=== PATIENT | female | born 1980 | race Hispanic/Latino ===

== ENCOUNTER 2017-05-21 10:53 | Inpatient (IN) | payer BC ==
[2017-05-21] MEDS ORDERED: DULCOLAX PR PRN (10:55)
[2017-05-21] MEDS ORDERED: MILK OF MAGNESIA PO PRN (10:55)
[2017-05-21] MEDS ORDERED: MOTRIN PO PRN (10:55)
[2017-05-21] MEDS ORDERED: TYLENOL PO PRN (10:55)
[2017-05-21] MEDS ORDERED: ZOFRAN IV PRN (10:55)
--- NOTE | 2017-05-21 11:08 | History and Physical Report ---
History of Present Illness Date of examination: 05/12/17 Date of admission: 05/21/17 10:53 Chief complaint: uti History of present illness: Pt has bilateral multiple kidney stones now with uti e coli only sensitive to ertapenum and imipenum. She is currently followed by urology, infectious dz as well as nephrology. She has no fevers or chills but does have flank pain. She has h/o of becoming septic requiring IV antibx via a port. Pt has had recurrentl UTI and pyelonephritis. Neither of these appear to be in the hospital emr so ID has been consulted for recommendations in treatment. There was an intermediate sensitivity to macrobid so will start at this time while awaiting further recommendations. Pt was being followed by Dr. Lucia previously and she has been consulted to give recommendations regarding out pt therapy as well as treatment at this time. Past Medical History: hx of kidney stones-several admission over the few months for sepsis, becteremia as a complication of the kidney stones. 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 History: denies: abnormal PAP smear Social history: no significant social history, single Medications and Allergies Allergies Allergy/AdvReac Type Severity Reaction Status Date / Time No Known Allergies Allergy Unverified 08/07/14 14:39 Home Medications Medication Instructions Recorded Confirmed Last Taken Type Ibuprofen [Motrin 800 MG tab] 800 mg PO Q8H PRN #30 tablet 08/15/14 Unknown Rx oxyCODONE /ACETAMINOPHEN [Percocet 1 tab PO Q6HR PRN #30 tablet 08/15/14 Unknown Rx 5/325] Review of Systems All systems: negative - Physical Exam Cardiovascular: Normal S1, Normal S2 Lungs: Positive: Clear to auscultation, Normal air movement Abdomen: Positive: normal appearance, soft. Negative: guarding, rigidity Genitourinary (Female): Positive: other (DEFERRED) Results All other labs normal. Assessment and Plan - Patient Problems (1) Renal calculus, bilateral Current Visit: Yes Status: Acute (2) Complicated UTI (urinary tract infection) Current Visit: Yes Status: Acute Plan to address problem: -intermediate sensitivity to macrobid so will start at this time until recommendations given by ID -admit for obs given pt h/o of sepsis due to complicated UTI -plan of care d/w pt and questions were addressed and answered. Pt was called on 05/19/17 when results were available but she was out of town and was not able to come to hospital for admission. She currently c/o flank pain which she did not have at the time the urine cx was drawn. She is s/p treatment recently but was still having symptoms and hence the reason for the repeat cx for a betina in my office.
[2017-05-21] MEDS: MACROBID PO SCH (13:15)
[2017-05-21] MEDS: NORCO 5/325 PO PRN ×2 (13:15→19:56)
--- NOTE | 2017-05-21 14:12 | Consultation ---
History of Present Illness - Reason for Consult Consult date: 05/21/17 recurrent MDR UTI Requesting physician: CAPRICE MADSEN - History of Present Illness 37 years old female well known to me, with history of complicated MDR/ESBL Escherichia coli UTI with recorder and kidney stones/left collecting system obstruction, admitted on 05/20/2017 due to R week history of worsening left- sided flank pain, 10 out of 10, associated with some frequency and urine odor. Patient has been treated in the past with IV ertapenem and last time November 2016. She follows up with KAVITA Akins. Patient has been chronically on fosfomycin however she has developed symptoms on fosfomycin. She has had urinalyses and urine culture done on May 13, which grew multidrug resistant Escherichia coli only sensitive to ertapenem). Patient was given Macrobid without any improvement. Denies any recent fever, chills. Reports severe nausea and vomiting. Upon admission, initial temperature 90.8, heart rate 78, respiration 18, blood pressure 132/77. Labs are pending. Microbiology: Urine cultures: 05/13 MDR E coli Current Antimicrobials: none Previous Antimicrobials: macrobid Past History Past Medical History: other (recurrent UTI and kidney stones ) Past Surgical History: Other (left sided ureteral stents ) Social history: no significant social history, single Medications and Allergies Allergies Allergy/AdvReac Type Severity Reaction Status Date / Time No Known Allergies Allergy Unverified 08/07/14 14:39 Home Medications Medication Instructions Recorded Confirmed Last Taken Type Ibuprofen [Motrin 800 MG tab] 800 mg PO Q8H PRN #30 tablet 08/15/14 05/21/17 Unknown Rx oxyCODONE /ACETAMINOPHEN [Percocet 1 tab PO Q6HR PRN #30 tablet 08/15/1405/17/17 Rx 5/325] Active Meds: Active Medications Acetaminophen (Tylenol) 650 mg PO Q4H PRN PRN Reason: Pain MILD(1-3)/Fever >100.5/THOMPSON Acetaminophen/Hydrocodone Bitart ([place] 5/325) 2 each PO Q6H PRN PRN Reason: Pain, Moderate (4-6) Bisacodyl (Dulcolax) 10 mg IA QDAY PRN PRN Reason: Constipation unrelieved by MOM Meropenem 1,000 mg/ Sodium (Chloride) 100 mls @ 100 mls/hr IV Q8HR JOVANNI PRN Reason: Protocol Ibuprofen (Motrin) 600 mg PO Q6H PRN PRN Reason: Pain, Mild (1-3) Magnesium Hydroxide (Milk Of Magnesia) 30 ml PO Q4H PRN PRN Reason: Constipation Nitrofurantoin Macrocrystals (Macrobid) 100 mg PO Q12HR JOVANNI Ondansetron HCl (Zofran) 4 mg IV Q8H PRN PRN Reason: N/V unrelieved by Reglan Review of Systems All systems: negative (as per HPI rest neg) Physical Examination - Physical Exam Narrative exam: General appearance: Alert in NAD, conversant Eyes: anicteric sclerae, moist conjunctivae; no lid-lag; PERRLA HENT: Atraumatic; oropharynx clear Neck: Trachea midline; supple, no thyromegaly or lymphadenopathy Lungs: CTA CV: RRR Abdomen: Soft, non-tender. + Left CVT Extremities: No peripheral edema or extremity lymphadenopathy Skin: Normal temperature, turgor and texture; no rash, ulcers or subcutaneous nodules Psych: Appropriate affect, alert and oriented to person, place and time. Neuro: alert and oriented x 3. Moving all extermities Lines: No CVL / PICC - Constitutional Vitals: Vital Signs Temp Pulse Resp BP Pulse Ox 98.1 F 78 18 132/77 97 05/21/17 13:25 05/21/17 13:25 05/21/17 13:25 05/21/17 13:25 05/21/17 13:25 Temperature -Last 24 Hours Temperature 98.1 F Assessment and Plan Assessment: 1) Recurrent complicated MDR/ESBL E coli UTI with recurrent stones and previous left ureteral strictures Plan: -obtain UA / urine culture / CBC and CMP / CRP -obtain renal US -start meropenem IV q 8h -contact isolation due to MDR E coli -if ureteral obstruction consult Urology -obtain records from [facility] office - where she is routinely seen -If clinically better, after 2-3 days of IV meropenem, ok to d/c home on fosfomycin 3 g PO every 3 days x 3 doses then 3 g PO once a week for 6 weeks -Needs ID clinic f/u with [facility] I will be off until May 27, but available over the phone, please call me for questions. Thank you Dr Madsen for your consultation, will follow up with you. Kalie Tena MD Infectious Diseases Specialist [facility] ([facility] M [phone] O [phone]
[2017-05-21 14:44] LABS: Basophils # (Auto) 0.1 K/mm3 (0.0-0.1); Basophils % (Auto) 0.5 % (0.0-1.8); Eosinophils % (Auto) 0.3 % (0.0-4.3); Hematocrit 42.9 % (30.3-42.9); Hemoglobin 14.1 gm/dl (10.1-14.3); Lymphocytes # (Auto) 1.6 K/mm3 (1.2-5.4); Mean Corpuscular HGB Conc 33 % (30-34); Mean Corpuscular Hemoglobin 26 pg (28-32); Mean Corpuscular Volume 81 fl (79-97); Monocytes # (Auto) 0.8 K/mm3 (0.0-0.8); Monocytes % (Auto) 5.6 % (0.0-7.3); Platelet Count 244 K/mm3 (140-440); Red Blood Count 5.33 M/mm3 (3.65-5.03); Red Cell Distribution Width 15.2 % (13.2-15.2)
[2017-05-21] MEDS: LACTATED RINGERS 1,000 ML IV SCH (14:45)
[2017-05-21 14:54] LABS: BUN/Creatinine Ratio 30; Blood Urea Nitrogen 15 mg/dL (7-17); Calcium 9.2 mg/dL (8.4-10.2); Hemolysis Index 19
[2017-05-21] MEDS: MERREM 1,000 MG in NACL 0.9% 100 ML IV SCH (16:00)
--- NOTE | 2017-05-21 17:49 | Ultrasound Report ---
FINAL REPORT PROCEDURE: US RENAL BILAT TECHNIQUE: Real-time sonography in multiple planes of the kidneys, ureters and urinary bladder was performed with image documentation. CPT 85509 HISTORY: recurrent UTI and stones please eval COMPARISON: No prior studies are available for comparison. FINDINGS: The echogenicity of the renal cortex bilaterally appears normal however the renal cortex of both kidneys appears significantly thinned consistent with atrophy. The right kidney measures 11.4 x 6.1 x 6.6 centimeters. The left kidney 9.1 x 6.4 x 6.2 centimeter. No masses or calculi are visualized. No evidence of hydronephrosis. The cortex of the right kidney only measures 7 millimeters in thickness, the cortex of the left kidney measures 6 millimeters in thickness. Image of the urinary bladder provided shows no abnormality. IMPRESSION: Renal cortex of the kidneys bilaterally appears thin. The appearance is consistent with atrophy. Kidneys are otherwise unremarkable.
[2017-05-22] MEDS: MERREM 1,000 MG in NACL 0.9% 100 ML IV SCH ×3 (00:41→16:30)
[2017-05-22] MEDS: MACROBID PO SCH ×2 (00:41→13:00)
[2017-05-22] MEDS: NORCO 5/325 PO PRN ×3 (03:54→21:18)
[2017-05-22] MEDS ORDERED: PAXIL PO SCH (10:00)
[2017-05-22] MEDS: LACTATED RINGERS 1,000 ML IV SCH ×2 (10:15→19:36)
--- NOTE | 2017-05-22 13:51 | Progress Note ---
Assessment and Plan - Patient Problems (1) Renal calculus, bilateral Current Visit: Yes Status: Acute (2) Complicated UTI (urinary tract infection) Current Visit: Yes Status: Acute Plan to address problem: -cont treatment as per ID -d/c home with out pt f/u after 48hrs of IV antibx Subjective - Subjective Date of service: 05/22/17 Principal diagnosis: HD #2 with uti resistent Interval history: pt doing well and states that pain continues to improve. No fevers or chills. She declines the paxil at this time. Patient reports: appetite normal, voiding normally, pain well controlled Objective - Vital Signs Latest vital signs: Vital Signs Temp Pulse Resp Resp Resp BP Pulse Ox 05/22/17 08:53 98.5 F 72 18 108/72 05/22/17 05:28 98.2 F 75 18 96/61 05/22/17 03:54 18 18 05/22/17 00:00 97.8 F 79 20 111/61 95 05/21/17 20:20 98.6 F 80 20 129/80 95 05/21/17 19:56 18 18 05/21/17 17:00 98.8 F 72 20 132/81 96 Intake and Output 05/21/17 05/22/17 05/22/17 22:59 06:59 14:59 Intake Total 540 200 240 Output Total 400 250 350 Balance 140 -50 -110 Intake: IV 100 Merrem 1,000 mg In NaCl 0 100 .9% 100 ml @ 100 mls/hr IV Q8HR [facility] Rx#:[id number] Oral 320 200 240 Tube Feeding 120 Output: Urine 400 250 350 Void 400 250 350 Other: Total, Intake Amount 100 100 240 Total, Output Amount 200 250 350 Voiding Method Toilet # Voids Void 100 - Exam Cardiovascular: Present: Normal S1, Normal S2 Lungs: Present: Clear to auscultation, Normal air movement Abdomen: Present: normal appearance, soft. Absent: distention, tenderness, guarding - Labs Labs: Abnormal lab results 05/21/17 05/21/17 05/21/17 Range/Units 14:10 14:10 14:21 WBC 14.4 H (4.5-11.0) K/mm3 RBC 5.33 H (3.65-5.03) M/mm3 MCH 26 L (28-32) pg Lymph % (Auto) 11.0 L (13.4-35.0) % Seg Neutrophils % 82.6 H (40.0-70.0) % Seg Neutrophils # 11.9 H (1.8-7.7) K/mm3 Creatinine 0.5 L (0.7-1.2) mg/dL Glucose 110 H (65-100) mg/dL C-Reactive Protein 1.40 H (0.00-1.30) mg/dL
[2017-05-23] MEDS: MACROBID PO SCH ×2 (00:49→13:18)
[2017-05-23] MEDS: MERREM 1,000 MG in NACL 0.9% 100 ML IV SCH ×3 (00:49→15:48)
[2017-05-23] MEDS: NORCO 5/325 PO PRN ×3 (03:40→15:47)
[2017-05-23] MEDS: LACTATED RINGERS 1,000 ML IV SCH (03:45)
--- NOTE | 2017-05-23 10:10 | Discharge Summary ---
Providers - Providers Date of Admission: 05/22/17 09:14 Date of discharge: 05/23/17 Attending physician: CAPRICE MUSE 05/21/17 11:02 Consult to Physician [CONS] Routine Consulting Provider: SHEEBA BENNETT Reason For Exam: uti sensitive to only ertapenem and imipenum Place consult to:: sheeba Lucia MD Notified:: yes Time called:: 13:30 Comment:: DR Lucia is here now to see the patients Primary care physician: WILNER GUSMAN Hospitalization Reason for admission: other (complicated UTI) Discharge diagnosis: other (complicated UTI) Hospital course: pt admitted for treatment of uti complicated by bacterial resistance to many anitbx and kidney stones. She passed several stones since admission but has continued to feel better. Her pain is improved since passing stone and with antibx therapy. Pt will f/u with ID out pt and con't on po antibx as recommended by by Dr. Lucia ID. Condition at discharge: Good Disposition: DC-01 TO HOME OR SELFCARE - Discharge Diagnoses (1) Renal calculus, bilateral Status: Acute (2) Complicated UTI (urinary tract infection) Status: Acute Plan - Discharge Medications Prescriptions: Fosfomycin Tromethamine [Monurol] 3 gm PO 3XW #9 packet - Provider Discharge Summary Additional instructions: [] Smoking cessation referral if applicable(refer to patient education folder for contact #) [] Refer to [facility] Booklet Call your doctor immediately for: * Fever > 100.5 * Heavy vaginal bleeding ( >1 pad per hour) * Severe persistent headache * Shortness of breath * Reddened, hot, painful area to leg or breast * Drainage or odor from incision. * Keep incision clean and dry at all times and follow doctor's instructions regarding bathing/showering - Follow up plan Follow up: WILNER GUSMAN MD [Primary Care Provider] - 7 Days
[2017-05-23 11:12] LABS: Basophils % (Auto) 0.5 % (0.0-1.8); Eosinophils # (Auto) 0.2 K/mm3 (0.0-0.4); Eosinophils % (Auto) 1.7 % (0.0-4.3); Hematocrit 40.9 % (30.3-42.9); Hemoglobin 13.6 gm/dl (10.1-14.3); Lymphocytes # (Auto) 2.2 K/mm3 (1.2-5.4); Lymphocytes % (Auto) 23.9 % (13.4-35.0); Mean Corpuscular HGB Conc 33 % (30-34); Mean Corpuscular Hemoglobin 27 pg (28-32); Mean Corpuscular Volume 81 fl (79-97); Monocytes # (Auto) 0.5 K/mm3 (0.0-0.8); Monocytes % (Auto) 5.7 % (0.0-7.3); Platelet Count 219 K/mm3 (140-440); Red Blood Count 5.02 M/mm3 (3.65-5.03); Red Cell Distribution Width 14.9 % (13.2-15.2)
[2017-05-23 16:16] VITALS: BP 117/88
== END 2017-05-23 17:53 | disposition home or self-care (01) | DRG 690 ==
LOC: 3A 10:53 → UNDOADMIN 10:53 → PREINTOOBSV 12:09 → OB 12:19 → OBSVTOIN 05-22 09:14
PROVIDERS: ADMIT Obstetrics & Gynecology; ATTEND Obstetrics & Gynecology
DX: N39.0 Urinary tract infection, site not specified (principal); N20.0 Calculus of kidney; Z98.51 Tubal ligation status; Z79.899 Other long term (current) drug therapy
CPT/HCPCS: 36415; 76770; 80048; 85025; 86140; G0378; G0379; J2185; J7120

== ENCOUNTER 2017-07-15 16:21 | Emergency (ER) | payer BC ==
[2017-07-15 16:41] VITALS: BP 127/82
[2017-07-15 16:56] LABS: Basophils # (Auto) 0.1 K/mm3 (0.0-0.1); Basophils % (Auto) 0.6 % (0.0-1.8); Eosinophils # (Auto) 0.1 K/mm3 (0.0-0.4); Eosinophils % (Auto) 1.2 % (0.0-4.3); Hematocrit 38.7 % (30.3-42.9); Lymphocytes # (Auto) 2.1 K/mm3 (1.2-5.4); Mean Corpuscular HGB Conc 34 % (30-34); Mean Corpuscular Hemoglobin 26 pg (28-32); Mean Corpuscular Volume 79 fl (79-97); Monocytes # (Auto) 0.7 K/mm3 (0.0-0.8); Monocytes % (Auto) 5.9 % (0.0-7.3); Platelet Count 231 K/mm3 (140-440); Red Blood Count 4.92 M/mm3 (3.65-5.03); Red Cell Distribution Width 14.9 % (13.2-15.2)
[2017-07-15 17:18] LABS: BUN/Creatinine Ratio 28; Bacteria,Urine 1+ /HPF (Negative); Bilirubin,Urine NEG (Negative); Blood Urea Nitrogen 17 mg/dL (7-17); Blood,Urine SM (Negative); Calcium 8.5 mg/dL (8.4-10.2); Color,Urine Yellow (Yellow); HCG Qualitative,Urine Negative (Negative); Hemolysis Index 20; Mucus,Urine FEW /HPF; Protein,Urine <15 mg/dL mg/dL (Negative); Urobilinogen,Urine < 2.0 mg/dL (<2.0)
[2017-07-15] MEDS ORDERED: NACL 0.9% 1000 ML 1,000 ML IV ONE (18:05)
[2017-07-15] MEDS ORDERED: TORADOL IV ONE (18:06)
--- NOTE | 2017-07-15 19:03 | Cat Scan Report ---
FINAL REPORT EXAM: CT ABDOMEN PELVIS WO CON HISTORY: left flank pain r/o stones TECHNIQUE: CT abdomen and pelvis without contrast PRIORS: None. FINDINGS: No acute abnormality identified in the lung bases. No focal abnormality identified within the liver parenchyma. The spleen demonstrates normal size and attenuation. No pancreatic abnormalities seen. There is bilateral medullary nephrocalcinosis with numerous calcifications within the medullary pyramids of both kidneys involving both upper and lower poles. There is mild prominence of the left ureter. Within the proximal left ureter just distal to the lower pole left kidney there is a 0.39 centimeter calculus which is likely partially obstructing. No additional ureteral calculi are identified. The adrenal glands are unremarkable. Abdominal aorta is normal in caliber. No pathologically enlarged lymph nodes are identified. No signs of free fluid or free air No evidence of small bowel dilatation. No evidence of colonic dilatation. No pericolonic inflammatory change seen. Bilateral tubal ligation clips are noted IMPRESSION: 0.39 centimeter proximal left ureteral calculus which is likely partially obstructing. No evidence for hydronephrosis Bilateral medullary nephrocalcinosis with numerous calcifications in the medullary pyramids bilaterally. Medullary sponge kidney is likely etiology. Differential consideration includes other pathological hypercalcemic or hypercalciuric states such as hyperparathyroidism, renal tubular acidosis or milk calculi syndrome Bilateral tubal ligation clips are noted along the course of the fallopian tubes.
--- NOTE | 2017-07-15 19:20 | Emergency Department Report ---
HPI - General Chief Complaint: Abdominal Pain Time Seen by Provider: 07/15/17 19:15 - HPI HPI: 37-year-old female with history of frequent kidney stones, frequent UTIs presents to ED with left flank pain, no fever, no chills. States pain is stabbing, 8 out of 10, with radiation to left groin. Patient was last in Hospital last year for complicated UTIs. ED Past Medical Hx - Past Medical History Previous Medical History?: Yes Hx Congestive Heart Failure: No Hx Diabetes: Yes (Gest. diabetes) Hx Kidney Stones: Yes (MSK) Hx Asthma: No Hx COPD: No Additional medical history: sepsis r/t kidney stones/MSK - Surgical History Past Surgical History?: Yes Additional Surgical History: tubal ligation - Social History Smoking Status: Never Smoker - Medications Home Medications: Home Medications Medication Instructions Recorded Confirmed Last Taken Type Ibuprofen [Motrin 800 MG tab] 800 mg PO Q8H PRN #30 tablet 08/15/14 05/21/17 Unknown Rx Fosfomycin Tromethamine [Monurol] 3 gm PO 3XW #9 packet 05/23/17 Unknown Rx oxyCODONE /ACETAMINOPHEN [Percocet 1 tab PO Q6HR PRN #15 tablet 07/15/17 Unknown Rx 5/325 mg] ED Review of Systems ROS: Stated complaint: POSSIBLE KIDNEY STONE Other details as noted in HPI Comment: All other systems reviewed and negative Endocrine: no symptoms reported Gastrointestinal: as per HPI Genitourinary: urgency Physical Exam - Physical Exam Vital Signs: Vital Signs 07/15/17 07/15/17 16:39 19:02 Temperature 98.8 F Pulse Rate 80 Respiratory 18 18 Rate Blood Pressure 127/82 O2 Sat by Pulse 98 Oximetry Physical Exam: Gen. alert and oriented 3 in no distress Head atraumatic normocephalic Eyes PERR LA EOMI Chest regular rate and rhythm normal S1-S2 lungs clear bilaterally Abdomen soft nondistended, left CVA tenderness Back no point tenderness paravertebral tenderness Neuro no focal deficit. Psych normal mood. ED Course Vital Signs 07/15/17 07/15/17 16:39 19:02 Temperature 98.8 F Pulse Rate 80 Respiratory 18 18 Rate Blood Pressure 127/82 O2 Sat by Pulse 98 Oximetry ED Medical Decision Making - Lab Data Result diagrams: 07/15/17 16:47 02/21/18 16:47 Critical care attestation.: If time is entered above; I have spent that time in minutes in the direct care of this critically ill patient, excluding procedure time. ED Disposition Clinical Impression: Left ureteral calculus Disposition: TO HOME OR SELFCARE Is pt being admited?: No Does the pt Need Aspirin: No Condition: Stable Prescriptions: oxyCODONE /ACETAMINOPHEN [Percocet 5/325 mg] 1 tab PO Q6HR PRN #15 tablet PRN Reason: Pain Referrals: PRIMARY CARE, [Primary Care Provider] - 3-5 Days
== END 2017-07-15 19:47 | disposition home or self-care (01) ==
LOC: ED 16:21
DX: N20.1 Calculus of ureter (principal); Z98.51 Tubal ligation status
CPT/HCPCS: 36415; 74176; 80048; 81001; 81025; 85025; 87086; 96361; 96374; 99284; J1885; J7030